=== PATIENT | male | born 1990 | race Caucasian/White ===

== ENCOUNTER 2023-01-18 17:42 | Emergency (ER) | payer MEDICAID ==
[~2023-01-18] VITALS: Ht 162.6 cm; Wt 56.0 kg
[2023-01-18 17:57] VITALS: BP 115/75
[2023-01-18] MEDS ORDERED: SULFAMETHOXAZOLE/TRIMETHOPRIM 400/80MG TAB PO ONE (18:45)
[2023-01-18] MEDS ORDERED: SULF1TAB48 MT (18:48)
== END 2023-01-18 19:18 | disposition home or self-care (01) ==
LOC: ER 17:42
DX: M70.42 Prepatellar bursitis, left knee (principal)
CPT/HCPCS: 99283